=== PATIENT | male | born 1995 | race Two or more races ===

== ENCOUNTER 2016-06-03 13:06 | Emergency (ER) | payer BC ==
[~2016-06-03 13:06] MED LIST: NO HOME MEDICATION; PROMETH-CODEIN 65 ML PO
== END 2016-06-03 16:16 ==
LOC: EDMED 13:06
DX: S96.911A Strain of unspecified muscle and tendon at ankle and foot level, right foot, initial encounter (principal); X58.XXXA Exposure to other specified factors, initial encounter

== ENCOUNTER 2016-06-27 21:34 | Emergency (ER) | payer BC ==
[2016-06-27] MEDS ORDERED: INHALER (22:00)
[2016-06-27] MEDS ORDERED: VENTOLIN HFA18 G2 PO (22:08)
== END 2016-06-27 22:45 ==
LOC: EDMED 21:34
DX: J45.909 Unspecified asthma, uncomplicated (principal)